=== PATIENT | female | born 1980 | race Hispanic/Latino ===

== ENCOUNTER → 2024-11-06 | Day surgery (SDC) | payer BC ==
[~2024-11-06] MED LIST: ALTOPREV40 MG PO; GLIMEPIRIDE2 MG PO; GLYCOPYRROLATE INJ 0.2 MG/ML VIAL ONE; HYOSCYAMINE SULFATE 0.5 MG/ML INJ ONE; LIDOCAINE HCL 2% LOCAL INJ 5 ML SDV VIAL INJ ONE; METFORMIN HCL500 M2 PO; MILK THISTLE175 M3 PO; PROPOFOL IV EMULSION 10 MG/ML 20 ML VIAL ONE
[2024-11-06] MEDS: LACTATED RINGER'S 1,000 ML ONE (11:00)
[2024-11-06 13:40] VITALS: BP 128/77; PULSE 82; RESP 17; O2SAT 99
== END | disposition home or self-care (01) ==
LOC: OR 10:10
PROVIDERS: ATTEND Internal Medicine Gastroenterology
DX: Z12.11 Encounter for screening for malignant neoplasm of colon (principal); K64.8 Other hemorrhoids; I10 Essential (primary) hypertension; E78.00 Pure hypercholesterolemia, unspecified; E11.9 Type 2 diabetes mellitus without complications; Z01.810 Encounter for preprocedural cardiovascular examination; Z01.812 Encounter for preprocedural laboratory examination; Z01.818 Encounter for other preprocedural examination; Z79.84 Long term (current) use of oral hypoglycemic drugs; Z68.30 Body mass index [BMI] 30.0-30.9, adult
CPT/HCPCS: 36415; 45378; 81025; 82948; 93005; J1980; J2003; J2704; J7121